=== PATIENT | male | born 1955 | race Caucasian/White ===

== ENCOUNTER 2016-09-11 09:32 | Day surgery (SDC) | payer MEDICARE ==
[2016-09-09 15:14] VITALS: BMI 42.5
[~2016-09-11 09:32] MED LIST: LACTATED RINGERS 1,000 ML IV SCH; LIDOCAINE 1% 20 ML VIAL (10MG/ML) FOR IV START INTRADERMA PRN
[2016-09-11 11:56] VITALS: RESP 16; TEMP 97.6
[2016-09-11] MEDS ORDERED: LIDOCAINE 1% INJ 10MG/ML (20 ML MDV) ONE (12:18)
[2016-09-11] MEDS ORDERED: MIDAZOLAM 2 MG/2 ML VIAL ONE (12:18)
[2016-09-11] MEDS ORDERED: PROPOFOL 10 MG/ML 20 ML VIAL IV ONE (12:18)
--- NOTE | 2016-09-11 12:59 | P.PCN ---
Date of Procedure: 09/11/16 Preoperative Diagnosis: Postoperative Diagnosis: Procedure(s) Performed: Procedures: 1. Esophagogastroduodenoscopy and biopsy. 2. Total colonoscopy. Preoperative diagnosis: Epigastric pain and history of colon polyps. Postoperative diagnosis: 1. Low-grade distal esophagitis. 2. Gastritis and duodenitis. 3. Normal colon exam. Preparation: HalfLytely prep. Sedation: Was provided by anesthesia. Brief clinical history: The patient is a 61-year-old male who was evaluated in the office last month regarding epigastric pain and history of polyps. His last endoscopies where 3 and 6 years ago. Procedure: With the patient on his left lateral decubitus position and after informed consent and adequate sedation, I passed the Olympus-GIF 160 video upper endoscope through the cricopharyngeus down the esophagus. GE junction was around 42-43 cm from the incisors and there was no definite hiatal hernia. The esophagus showed showed distal superficial linear erosions consistent with low-grade distal esophagitis. There were no strictures or Mcpherson's esophagus. There was no definite hiatal hernia then the endoscope was advanced into the stomach which was insufflated with air and inspected in detail including the retroflex view in the cardia. Finally, the endoscope was passed through the pylorus into the duodenum. Both the stomach and duodenum showed mottling, erythema and friability consistent with gastritis and duodenitis, but there were no ulcers or active bleeding or gastric outlet obstruction. I obtained biopsies from the antrum then the endoscope was withdrawn and I proceeded with the colonoscopy. Perianal area did not show any fissures or fistulas. There were no masses felt on digital rectal examination. The Olympus CFH 190L video colonoscope was then inserted in the rectum in the usual fashion and advanced to the cecum. The mucosa appeared healthy. No polyps or tumors were seen or obvious diverticular disease or other pathology. I retroflexed the endoscope in the rectum before the endoscope was withdrawn. The patient tolerated the procedure well. Plan: The patient was reassured. Will await biopsy results. He has an appointment for follow-up in the office in February. With his history of polyps , I recommended repeat colonoscopy in 5 years. He will follow up with you as planned. Implants: Indications for Procedure: Operative Findings: Description of Procedure:
[2016-09-11 13:26] VITALS: BP 140/89; PULSE 73
== END 2016-09-11 13:25 | disposition home or self-care (01) ==
LOC: ORWHC2ENDO 09:32
DX: Z12.11 Encounter for screening for malignant neoplasm of colon (principal); K29.50 Unspecified chronic gastritis without bleeding; K20.9 Esophagitis, unspecified; K29.80 Duodenitis without bleeding; Z86.010 Personal history of colon polyps; Z95.1 Presence of aortocoronary bypass graft
CPT/HCPCS: 88305; 88342; 43239; J2250; J2001; J2704; G0105

== ENCOUNTER → 2016-09-17 | Outpatient (CLI) | payer MEDICARE ==
--- NOTE | 2016-09-17 10:06 | US ---
EXAMINATION TYPE: US liver DATE OF EXAM: 09/17/2016 COMPARISON: CT CLINICAL HISTORY: K74.60 CIRRHOSIS OF THE LIVER. Chronic Hep C, Cirrhosis EXAM MEASUREMENTS: Liver Length: 15.8 cm CBD: 0.6 cm Right Kidney: 13.7 x 6.1 x 5.9 cm Pancreas: Obscured by bowel gas Liver: Heterogeneous, difficult to penetrate, PV and Hep A hepatopedal flow Gallbladder: Surgically absent Evidence for sonographic Stewart's sign: No CBD: wnl Right Kidney: Possible double collecting system, cyst lower pole= 1.6 x 1.2 x 1.6 cm IMPRESSION: 1. Features of cirrhotic liver disease. 2. Cyst lower pole right kidney.
== END | disposition home or self-care (01) ==
LOC: RADUSWWP 09:18
DX: N28.1 Cyst of kidney, acquired (principal)
CPT/HCPCS: 76705; 93976

== ENCOUNTER → 2023-05-14 | Day surgery (SDC) | payer MEDICARE, OTHER ==
[~2023-05-14] MED LIST changes: +HYDROmorphone 0.5 MG/0.5 ML SYRINGE IVP PRN; -LACTATED RINGERS 1,000 ML IV SCH; -LIDOCAINE 1% 20 ML VIAL (10MG/ML) FOR IV START INTRADERMA PRN
[2023-05-14 10:41] VITALS: TEMP 98
[2023-05-14 10:48] LABS: Glucose,Whole Blood 116 mg/dL (70-110)
[2023-05-14 11:07] LABS: INR 1.2 (<1.2); Prothrombin Time 12.5 sec (10.0-12.5)
[2023-05-14 11:18] LABS: Mean Platelet Volume 8.5; Platelet Count 85 k/uL (150-450)
[2023-05-14 11:52] VITALS: RESP 18
[2023-05-14] MEDS: HYDROcodone/APAP 5-325MG 1 EACH TAB PO PRN (12:50)
--- NOTE | 2023-05-14 12:55 | US ---
EXAMINATION TYPE: US biopsy liver, CT abdomen wo con DATE OF EXAM: 05/14/2023 11:55 AM CLINICAL INDICATION:Male, 67 years old with history of R16.0 HEPATOMEGALY, NOT ELSEWHERE CLASSIFIED; post liver bx pain, [facility] COMPARISON: Outside imaging. TECHNIQUE: * Axial imaging of the abdomen for postbiopsy complications. * Ultrasound-guided right hepatic lobe mass biopsy. CT DLP: 785 mGycm, Automated exposure control for dose reduction was used. Contrast used: mL of , none Oral contrast used: without Oral Contrast none Findings: Ultrasound guided percutaneous biopsy of using coaxial method. The procedure was explained to the pat ient including risks of bleeding, bruising, infection, damage to nearby organs and need for additiona l therapy including potential surgery. All questions were answered and consent was obtained. The previous studies were reviewed. The patient was placed on the ultrasound suite in the left obliq ue supine position. The overlying skin was marked and prepped using sterile method. Timeout was take n per protocol. Following administration of local anesthesia a 19 gauge coaxial needle was introduced on the right hepatic lobe mass. The coaxial needle tip was directed into the mass with CT guidance. There were 2 20 gauge coaxial biopsies were then obtained. Avitene was used postbiopsy to stop bleed ing. Following the procedure the needle was removed and sterile dressing was applied to the percuta neous site. Post biopsy imaging demonstrated no evidence of hemorrhage. Patient went to the CT suite for confirmation of needle hemorrhage given Patient was taken for postpr ocedure observation in stable condition. CT imaging demonstrated no evidence for hematoma or competition from ultrasound guided biopsy. There is a cirrhotic morphology to liver with surgically absent gallbladder. Atherosclerosis of the arteria l vasculature. The appendix is normal. Degeneration changes throughout the spine. Mild atherosclerosi s of the heart. Pancreas is without evidence of mass. No ductal dilation or evidence for choledocholi thiasis. Small fat-containing umbilical hernia. IMPRESSIONS: 1. Status post ultrasound guided percutaneous right hepatic lobe mass biopsy as described above. [facility] holo results pending. 2. No evidence of postop complication on CT imaging.
[2023-05-14 13:36] VITALS: PULSE 69
[2023-05-14 14:43] VITALS: BP 153/72
== END ==
LOC: RADPROMAIN 08:37
PROVIDERS: ATTEND Internal Medicine Gastroenterology
DX: C22.0 Liver cell carcinoma (principal)
CPT/HCPCS: 36415; 47000; 74150; 76942; 85049; 85610; 88307; 88313; 88341; 88342